=== PATIENT | male | born 1995 | race Caucasian/White ===

== ENCOUNTER 2018-09-03 14:06 | Emergency (ER) | payer SELFPAY ==
[2018-09-03] MEDS ORDERED: Fluorescein Opthalmic Strip ONE (14:30)
[2018-09-03] MEDS ORDERED: Proparacaine 0.5% Opth 15 ML BOT ONE (14:31)
== END 2018-09-03 15:01 | disposition home or self-care (01) ==
LOC: ERS 14:06
DX: H10.9 Unspecified conjunctivitis (principal)
CPT/HCPCS: 99283